=== PATIENT | male | born 2000 | race Caucasian/White ===

== ENCOUNTER → 2020-05-16 01:30 | Emergency (ER) | payer SELFPAY ==
--- NOTE | 2020-05-16 01:41 | PHYS DOC ---
General Adult HPI: HPI: Patient is a 19 year old male who presents with above hx and complaints insomnia. Left before complete check in. Review of Systems: Review of Systems: Psychiatric: Complaints of insomnia Physical Exam: PE: Refused to be checked in. EKG: EKG: [] Radiology/Procedures: Radiology/Procedures: [] Heart Score: Risk Factors: Risk Factors: DM, Current or recent (<one month) smoker, HTN, HLP, family history of CAD, obesity. Risk Scores: Score 0 - 3: 2.5% MACE over next 6 weeks - Discharge Home Score 4 - 6: 20.3% MACE over next 6 weeks - Admit for Clinical Observation Score 7 - 10: 72.7% MACE over next 6 weeks - Early Invasive Strategies Course & Med Decision Making: Course & Med Decision Making Pertinent Labs and Imaging studies reviewed. (See chart for details) No exam, - did not completed check in. [] Dragon Disclaimer: Dragon Disclaimer: This electronic medical record was generated, in whole or in part, using a voice recognition dictation system. Departure Departure: Referrals: PCP,UNKNOWN (PCP) LV MONREAL MD May 16, 2020 01:41
== END | disposition left against medical advice (07) ==
LOC: ER 01:30
DX: G47.00 Insomnia, unspecified (principal); Z53.21 Procedure and treatment not carried out due to patient leaving prior to being seen by health care provider